=== PATIENT | male | born 1970 | race Caucasian/White ===

== ENCOUNTER 2020-10-26 13:36 | IRF | payer OTHER, SELFPAY ==
--- NOTE | 2020-10-26 13:31 | ADMGEN ---
Patient arrived via personal vehicle, alert and orientated, no issues at this time. This patient, Eagle Turner, was admitted to [facility] Room 220-02. Patient/family oriented to hospital policies and general routines including ID bracelet, bed and alarms, visiting hours, pain management, procedures, bathroom and other care routines, personal items, smoking policy, room service/diet, and visiting hours. Information on how to activate the Rapid Response Team has been discussed. Patient/Family are encouraged to report perceived risks to care and to ask questions if they do not understand what they are told or what they should do.
[2020-10-26 13:37] VITALS: BP 129/59; PULSE 77; RESP 18; TEMP 36.2; O2SAT 100
[2020-10-26 14:12] VITALS: BMI 44.0
[2020-10-26 14:13] VITALS: BP 129/59; PULSE 77; RESP 18; TEMP 36.2; O2SAT 100
[2020-10-26 16:50] VITALS: BMI 44.0
[2020-10-26] MEDS: HYDROcodone/acetaminophen (*CRX) 5-325 MG TABLET 2 TAB PO (17:28)
[2020-10-26 17:31] VITALS: PULSE 77
[2020-10-26] MEDS: APIXABAN 5 MG TABLET PO (17:31)
[2020-10-26] MEDS: AMIODARONE HCL 200 MG TABLET 400 MG PO (17:31)
[2020-10-26] MEDS: GABAPENTIN 300 MG CAPSULE PO (17:32)
[2020-10-26 20:33] VITALS: PULSE 82
[2020-10-26] MEDS: MELATONIN 3 MG TABLET PO (20:33)
[2020-10-26] MEDS: METOPROLOL SUCCINATE EXT REL 25 MG TABCR 75 MG PO (20:33)
[2020-10-26] MEDS: FAMOTIDINE 20 MG TABLET PO (20:33)
[2020-10-26 21:47] VITALS: BP 102/56; PULSE 73; RESP 16; TEMP 36.3; O2SAT 98
[2020-10-27] VITALS (8 sets, daily range): BP systolic 92–105; BP diastolic 54–67; PULSE 65–80; RESP 16–20; TEMP 36.1–36.4; O2SAT 98–99; BMI 44.0
[2020-10-27] MEDS: HYDROcodone/acetaminophen (*CRX) 5-325 MG TABLET 1 TAB PO (02:43)
[2020-10-27 05:21] LABS: Basophils Absolute Auto 0.1 K/mm3 (0.0-0.1); Basophils Percent Auto 0.4 % (0.2-1.2); Eosinophils Absolute Auto 0.2 K/mm3 (0-0.3); Hematocrit 36.1 % (42.0-52.0); Hemoglobin 11.9 g/dL (14.0-18.0); Immature Granulocyte Absolute 0.16 K/mm3 (0.00-0.031); Immature Granulocyte Percent A 0.9 % (0-0.5); Lymphocytes Absolute Auto 2.59 K/mm3 (0.9-3.2); Lymphocytes Percent Auto 14.4 % (18.3-44.2); Mean Corpuscular Hemoglobin 29.5 pg (26-34); Mean Corpuscular Volume 89.6 fl (80-100); Mean Platelet Volume 10.6 fl (7.4-10.4); Monocytes Absolute Auto 1.1 K/mm3 (0.1-0.6); Monocytes Percent Auto 5.9 % (2.6-8.5); Neutrophils Absolute Auto 13.9 K/mm3 (1.3-6.7); Neutrophils Percent Auto 77.4 % (45.5-73.1); Platelet Count Result 407 k/mm3 (150-375); Red Blood Count 4.03 M/mm3 (4.6-6.20); Red Cell Distribution Width 14.2 % (11.5-14.5)
[2020-10-27 05:42] LABS: Alanine Aminotransferase 32 U/L (4-50); Albumin Level 4.1 g/dL (3.5-5.1); Alkaline Phosphatase 105 U/L (38-126); Anion Gap 7 mmol/L (8-16); Aspartate Amino Transferase 40 U/L (17-59); Bilirubin,Total 0.5 mg/dL (0.2-1.3); Blood Urea Nitrogen 18 mg/dL (9-20); Calcium 9.6 mg/dL (8.4-10.2); Carbon Dioxide 28 mmol/L (22-30); Chloride 101 mmol/L (98-107); Estimated CRCL calculation 141 ml/min; Estimated Glomerular Filt Rate > 60; Glucose 120 mg/dL (75-110); Potassium 4.4 mmol/L (3.4-5.0); Sodium 136 mmol/L (137-145)
[2020-10-27] MEDS: GABAPENTIN 300 MG CAPSULE PO ×3 (08:50→18:13)
[2020-10-27] MEDS: METOPROLOL SUCCINATE EXT REL 25 MG TABCR 75 MG PO ×2 (08:51→20:21)
[2020-10-27] MEDS: APIXABAN 5 MG TABLET PO ×2 (08:51→18:13)
[2020-10-27] MEDS: POTASSIUM CHLORIDE 10 MEQ TABLET.ER PO (08:51)
[2020-10-27] MEDS: ISOSORBIDE MONONITRATE 30 MG TAB.ER.24H PO (08:51)
[2020-10-27] MEDS: ATORVASTATIN 40 MG TABLET PO (08:52)
[2020-10-27] MEDS: AMIODARONE HCL 200 MG TABLET PO ×2 (08:52→18:13)
[2020-10-27] MEDS: lisinopriL 10 MG TABLET PO (08:52)
[2020-10-27] MEDS: FAMOTIDINE 20 MG TABLET PO ×2 (08:52→20:21)
[2020-10-27] MEDS: FUROSEMIDE 20 MG TABLET PO (08:52)
[2020-10-27] MEDS: SERTRALINE HCL 50 MG TABLET PO (08:52)
[2020-10-27] MEDS: ASPIRIN 81 MG CHEWABLE TABLET PO (08:53)
[2020-10-27] MEDS: HYDROcodone/acetaminophen (*CRX) 5-325 MG TABLET 2 TAB PO ×3 (08:57→20:22)
--- NOTE | 2020-10-27 11:35 | WPDREHABHP ---
H&P: HPI History of Present Illness Date/Time: 10/27/20 11:35 Chief Complaint: Cardiac rehab, stroke rehab Narrative: HISTORY OF PRESENT ILLNESS: The patient's primary rehab impairment category is cardiac The etiologic diagnosis is severe LAD diagonal coronary artery disease in the setting of failed stents I saw this patient [id number] on 10/27/2020 The patient is a 50-year-old male with past medical history of hypertension, ischemic cardiomyopathy, CHF, coronary artery disease, status stent placement in December 2019 who presented to [facility] on 10/15/20 for an elective CABG. The patient has failed stents and all conservative measures have been exhausted. Patient had recently presented to the hospital on 10/04/2020 with report of ongoing symptoms of fatigue and exertional shortness of breath. He had mildly elevated troponin enzymes. He underwent an echocardiogram which showed an injection fraction of 40-45% and coronary angiography which showed intrastent stenosis involving the LAD and third diagonal branch. There is also significant lesions in the 1st diagonal branch. There is anterior hypokineses by ventriculography. Hospital course: Afib/flutter. Patient will have a maintenance dose of 200mg BID. On Eliquis. Dr. Almanzar was consulted for possible ablation. Leukocytosis: [place] does not recommend antibiotics at this time. Sternal incision had mild redness at the inferior aspects which continued to lessen. Drain sites dry. blood,urine. wound cx negative. TIA?CVA? Patient demonstrated word finding deficits. ST ordered. CT scan negative unable to perform MRI due to recent CABG. Urethritis: irritation and dysuria resolved RLE DVT: per Doppler. Eliquis 5mg BID for 3 months COVID: The patient has not traveled outside the [place] or had contact with someone who is ill that has traveled outside the [place] in the past 21 days. The patient has not traveled to an area of the [place] that is experiencing known transmission of COVID and has not had close personal contact with anyone that has. The patient has not had a fever or lower respiratory sx. Patient has tested negative for COVID 10/25/20 Therapy was initiated at the acute care facility and the patient transferred to us from [facility] on 10/26/20] FALLS OR SURGERIES: The patient has had major surgeries in the 100 days prior to admission. He has had [no] falls in the past year. He had [no] falls with injury in the past year. PRIOR LEVEL OF FUNCTION: Eating was INDEPENDENT Oral Care was [INDEPENDENT] Toileting Hygiene was [INDEPENDENT] Shower/Bathing was [INDEPENDENT] Upper Body Dressing was [INDEPENDENT] Lower Body Dressing was [INDEPENDENT] Donning/Flat Lick Footwear was [INDEPENDENT] Rolling Left and Right was [INDEPENDENT] Sit to Lying was [INDEPENDENT] Lying to Sitting was [INDEPENDENT] Sit to Stand was [INDEPENDENT] Bed to Chair Transfers was [INDEPENDENT] Toilet Transfers was [INDEPENDENT] Walking was [INDEPENDENT] [>500 feet] with [NO DEVICE] Wheelchair Mobility was [NOT APPLICABLE PRIOR TO ADMISSION] Stairs were [INDEPENDENT] CURRENT LEVEL OF FUNCTION: Eating was [SET UP ONLY] Oral Care was [SET UP ONLY] Toileting Hygiene was partial mod assist[] Shower/Bathing was partial mod assist[] Upper Body Dressing partial mod assist.[] Lower Body Dressing was [partial/mod assist] Donning/Flat Lick Footwear was partial/mod assit[] Rolling Left and Right was [partial/mod assist] Sit to Lying was partial/mod assist[] Lying to Sitting was partial.mod assist[] Sit to Stand was partial mod assist[] Bed to Chair Transfers were partial mod assist[] Toilet Transfers were partial mod assist[] Walking was 50 ft with a ww and partial/mod assist[] Wheelchair Mobility was not tested[] Stairs were not tested[] GOALS: Our therapists will evaluate the patient and establish the goals. However, upon pre-admission screening, the expected goals were to be [INDEPENDENT] with self-c
--- NOTE | 2020-10-27 13:50 | RPD ---
INDIVIDUALIZED PLAN OF CARE FOR Eagle Turner Brief Synthesis of Pre-Admission Screen, Post-Admission Evaluation and Therapy Evaluations: The patient presents to rehab with a severe LAD diagonal coronary artery disease. Comorbidities include acute exacerbation of CHF, dyspnea, myocardial ischemia, severe LAD diagonal coronary artery disease, left ventricular dysfunction, atrial fibrillation, CAD, dyslipidemia, hypertension, ischemic cardiomyopathy, anxiety, depression, arthritis, morbid obesity, peripheral arterial disease, peripheral vascular disease, dysuria, and R LE DVT. Post-op complications have included aphasia, ABLA, leukocytosis, urinary issues, right LE DVT, and acute post-operative pain. The complexity of the patient's medical management, nursing, and therapy needs require an inpatient rehab hospital stay with a physician led interdisciplinary team approach. The patient?s needs will be best met in an intensive program vs. at a lower level of care. The patient requires physician services for medical oversight, management of postop complications in setting of present comorbidities, and pain management. He will be followed at least three times a week by the rehabilitation physician. Labs will be drawn to monitor blood counts and electrolytes periodically. The patient requires nursing services for DVT prophylactics, infection protection, medication management and education, pressure relief, and wound care. Deficits include:ADLs, Balance, Endurance, Family Training/Education, Mobility, Pain Management, ROM, Safety, Strength, and Transfers. It Application Administrator/Case Management for: Discharge Planning and Patient/Family Counseling Physical Therapy: 5 days per week for 90 minutes. Treatments may include: Therapeutic Exercise, Gait Training, Neuromuscular Re-education, Transfer Training, Community Reintegration, Bed Mobility, Patient/Family Education, Wheelchair Mobility Group Therapy/Concurrent Therapy Rationales: -Improve attention span during functional activities in a distracted environment. -Enhance problem solving and/or adequate judgment skills during functional activities in a distracted environment. -Promote increased safety awareness in a distracted environment to reduce fall risk with functional tasks, transfers, and ambulation to allow a more safe, self-sufficient return to the home environment. -Improve dynamic balance skills to promote safety and independence with functional activities in a distracted environment for maximum gain. Occupational Therapy: 5 days per week for 90 minutes. Treatments may include: Therapeutic Exercise, Therapeutic Activity, Cognitive Training, Self-Care Transfer Training, Community Reintegration, Home Management, Patient/Family Education, Wheelchair Mobility Training, Energy Conservation Training Group Therapy/Concurrent Therapy Rationales: -Allow therapist to observe and teach generalization and carry-over of skills learned in individual therapy. -Enhance problem solving and sequencing skills during therapeutic activities in a distracted environment. -Promote increased safety awareness in a realistic setting to reduce fall risk with functional tasks due to visual and verbal distractions. -Increase functional level with ADLs, ADL transfers and use of adaptive equipment through therapeutic activities with others while promoting safety to allow a more safe, self-sufficient return home. Medical Prognosis: Good Anticipated Length of Stay: 12 days Rehab Goals: Eating Goal: 06-Independent Oral Hygiene Goal: 06-Independent Toileting Hygiene Goal: 06-Independent Shower/Bathe Self Goal: 06-Independent Upper Body Dressing Goal: 06-Independent Lower Body Dressing Goal: 06-Independent Putting On/Taking Off Footwear Goal: 06-Independent Rolling Left and Right Goal: 06-Independent Sit to Lying Goal: 06-Independent Lying to Sitting on Side of Bed Goal: 06-Independent Sit to Stand Goal: 06-Independent Chair/Nzo-lv-Wylwh Transfer G
--- NOTE | 2020-10-27 14:05 | PCNSR ---
On 10/27/20, the student, Salma Powell, provided care and completed [facility] documentation on this patient. I have reviewed the student's documentation and agree with the findings.
[2020-10-27] MEDS: MELATONIN 3 MG TABLET PO (20:21)
[2020-10-28] VITALS (11 sets, daily range): BP systolic 111–120; BP diastolic 60–66; PULSE 66–84; RESP 16–20; TEMP 36–36.3; O2SAT 95–99
[2020-10-28] MEDS: HYDROcodone/acetaminophen (*CRX) 5-325 MG TABLET 1 TAB PO ×3 (05:05→12:24)
[2020-10-28] MEDS: FAMOTIDINE 20 MG TABLET PO ×2 (08:38→21:36)
[2020-10-28] MEDS: SERTRALINE HCL 50 MG TABLET PO (08:38)
[2020-10-28] MEDS: ATORVASTATIN 40 MG TABLET PO (08:39)
[2020-10-28] MEDS: POTASSIUM CHLORIDE 10 MEQ TABLET.ER PO (08:39)
[2020-10-28] MEDS: METOPROLOL SUCCINATE EXT REL 25 MG TABCR 75 MG PO ×2 (08:39→21:35)
[2020-10-28] MEDS: FUROSEMIDE 20 MG TABLET PO (08:41)
[2020-10-28] MEDS: APIXABAN 5 MG TABLET PO ×2 (08:41→17:59)
[2020-10-28] MEDS: GABAPENTIN 300 MG CAPSULE PO ×3 (08:41→17:59)
[2020-10-28] MEDS: ISOSORBIDE MONONITRATE 30 MG TAB.ER.24H PO (08:41)
[2020-10-28] MEDS: ASPIRIN 81 MG CHEWABLE TABLET PO (08:41)
[2020-10-28] MEDS: AMIODARONE HCL 200 MG TABLET PO ×2 (08:42→17:59)
[2020-10-28] MEDS: lisinopriL 10 MG TABLET PO (08:42)
--- NOTE | 2020-10-28 08:51 | PCPTNOTE ---
Eagle Turner was evaluated for a wheeled walker on 10/28/2020 by this physical therapist. The wheeled walker will resolve patient's mobility limitations and will be used for ADL's within the home. The patient can safely use the wheeled walker. ?The wheeled walker will resolve the patient?s mobility deficits, including hypotension, pain, and poor endurance.
[2020-10-28 15:37] LABS: Basophils Absolute Auto 0.1 K/mm3 (0.0-0.1); Basophils Percent Auto 0.3 % (0.2-1.2); Eosinophils Absolute Auto 0.2 K/mm3 (0-0.3); Eosinophils Percent Auto 0.9 % (0-4.4); Hematocrit 33.3 % (42.0-52.0); Hemoglobin 10.8 g/dL (14.0-18.0); Immature Granulocyte Absolute 0.17 K/mm3 (0.00-0.031); Immature Granulocyte Percent A 0.9 % (0-0.5); Lymphocytes Absolute Auto 3.06 K/mm3 (0.9-3.2); Lymphocytes Percent Auto 16.4 % (18.3-44.2); Mean Corpuscular HGB Conc 32.4 g/dl (32-36); Mean Corpuscular Hemoglobin 29.4 pg (26-34); Mean Corpuscular Volume 90.7 fl (80-100); Mean Platelet Volume 10.8 fl (7.4-10.4); Monocytes Absolute Auto 1.2 K/mm3 (0.1-0.6); Monocytes Percent Auto 6.3 % (2.6-8.5); Neutrophils Percent Auto 75.2 % (45.5-73.1); Platelet Count Result 464 k/mm3 (150-375); Red Blood Count 3.67 M/mm3 (4.6-6.20); Red Cell Distribution Width 14.5 % (11.5-14.5); White Blood Count 18.6 K/mm3 (4.5-10.0)
--- NOTE | 2020-10-28 17:07 | WPDNEURORHBP ---
Subjective Date/time seen: The patient's primary rehab impairment category is cardiac The etiologic diagnosis is severe LAD diagonal coronary artery disease in the setting of failed stents I saw this patient [id number] on 10/27/2020 The patient is a 50-year-old male with past medical history of hypertension, ischemic cardiomyopathy, CHF, coronary artery disease, status stent placement in December [address] [facility] on 10/15/20 for an elective CABG. The patient has failed stents and all conservative measures have been exhausted. Patient had recently presented to the hospital on 10/04/2020 with report of ongoing symptoms of fatigue and exertional shortness of breath. He had mildly elevated troponin enzymes. He underwent an echocardiogram which showed an injection fraction of 40-45% and coronary angiography which showed intrastent stenosis involving the LAD and third diagonal branch. There is also significant lesions in the 1st diagonal branch. There is anterior hypokineses by ventriculography. Hospital course: Afib/flutter. Patient will have a maintenance dose of 200mg BID. On Eliquis. Dr. Almanzar was consulted for possible ablation. Leukocytosis: [place] does not recommend antibiotics at this time. Sternal incision had mild redness at the inferior aspects which continued to lessen. Drain sites dry. blood,urine. wound cx negative. TIA?CVA? Patient demonstrated word finding deficits. ST ordered. CT scan negative unable to perform MRI due to recent CABG. Urethritis: irritation and dysuria resolved RLE D101/31 Patient with complaints of sternal pain. Will lady norco for 10mg TID. Consider switching to tramadol Review of Systems Review of Systems: All systems reviewed & are unremarkable except as noted in HPI and below Functional Status Ambulation Ability Ability to Ambulate 10 Feet: Independent Ability to Ambulate 50 Feet With 2 Turns: Independent Ability to Ambulate 150 Feet: Independent Ambulation Assistive Devices: None Transfers Ability Ability to Transfer In/Out of Chair: Independent Exam Const: General: no acute distress Eyes: General: appearance normal, both eyes and all related structures Neck: Neck: supple Chest: Other: sternal incision dry no drainage, redness slightly worse Resp: Auscultation: clear to auscultation bilaterally Cardio: Rate: regular rate Rhythm: regular rhythm Skin: Other: drains sites dry, graft sites clean with minimal redness. Neuro: Cognition (Neuro): normal cognition Speech: normal speech Other: except for number forward and backwards. 50 % accuracy Psych: Affect: normal affect Objective Data Vital Signs Vital Signs: Vital Signs - 24 hr 10/27/20 18:13 10/27/20 20:21 10/27/20 22:00 Temperature 36.1 C L Pulse Rate 76 80 65 Respiratory Rate 20 Blood Pressure 92/56 L Pulse Oximetry 98 10/28/20 06:00 10/28/20 08:39 10/28/20 08:42 Temperature 36.0 C L Pulse Rate 66 76 76 Respiratory Rate 16 Blood Pressure 111/65 Pulse Oximetry 98 10/28/20 09:31 10/28/20 11:00 10/28/20 13:34 Temperature Pulse Rate 81 84 71 Respiratory Rate Blood Pressure 114/66 Pulse Oximetry 99 95 97 10/28/20 14:00 Temperature 36.0 C L Pulse Rate 76 Respiratory Rate 20 Blood Pressure 120/60 Pulse Oximetry 98 Intake/Output Intake/Output: Intake & Output 10/25/20 10/26/20 10/27/20 10/28/20 23:59 23:59 23:59 23:59 Intake Total 240 840 600 Balance 240 840 600 Meds/Results Medications: Active Medications Generic Name Dose Route Start Last Admin Trade Name Freq PRN Reason Stop Dose Admin Acetaminophen 650 mg 10/26/20 16:40 Acetaminophen 325 Mg Tablet PO Q4H PRN Pain (Scale Score 1-3) Hydrocodone Bitart/Acetaminophen 1 tab 10/26/20 16:40 10/28/20 12:24 Hydrocodone/Acetaminophen (*Crx) 5-325 Mg Tablet PO 11/02/20 23:59 1 tab Q6H PRN Administration Pain (Scale Score 4-6) Hydrocodone Bitart
[2020-10-28] MEDS: HYDROcodone/acetaminophen (*CRX) 10-325 MG TABLET 1 TAB PO (17:57)
[2020-10-28] MEDS: CEPHALEXIN 500 MG CAPSULE PO (17:59)
[2020-10-28] MEDS: MUPIROCIN 2% OINT 22 GM TUBE 1 APPLIC TOPICAL (17:59)
[2020-10-28] MEDS: HYDROcodone/acetaminophen (*CRX) 5-325 MG TABLET 2 TAB PO (21:33)
[2020-10-28] MEDS: MELATONIN 3 MG TABLET PO (21:36)
[2020-10-29] VITALS (10 sets, daily range): BP systolic 114–129; BP diastolic 53–73; PULSE 62–90; RESP 16–18; TEMP 35.8–36.1; O2SAT 96–100
[2020-10-29] MEDS: CEPHALEXIN 500 MG CAPSULE PO ×4 (00:23→16:45)
[2020-10-29 05:37] LABS: Potassium 4.9 mmol/L (3.4-5.0)
[2020-10-29] MEDS: POTASSIUM CHLORIDE 10 MEQ TABLET.ER PO (08:28)
[2020-10-29] MEDS: HYDROcodone/acetaminophen (*CRX) 10-325 MG TABLET 1 TAB PO ×3 (08:28→16:45)
[2020-10-29] MEDS: ATORVASTATIN 40 MG TABLET PO (08:28)
[2020-10-29] MEDS: FUROSEMIDE 20 MG TABLET PO (08:29)
[2020-10-29] MEDS: APIXABAN 5 MG TABLET PO ×2 (08:29→16:45)
[2020-10-29] MEDS: lisinopriL 10 MG TABLET PO (08:29)
[2020-10-29] MEDS: GABAPENTIN 300 MG CAPSULE PO ×3 (08:29→16:45)
[2020-10-29] MEDS: SERTRALINE HCL 50 MG TABLET PO (08:29)
[2020-10-29] MEDS: ASPIRIN 81 MG CHEWABLE TABLET PO (08:29)
[2020-10-29] MEDS: AMIODARONE HCL 200 MG TABLET PO ×2 (08:29→16:44)
[2020-10-29] MEDS: METOPROLOL SUCCINATE EXT REL 25 MG TABCR 75 MG PO ×2 (08:30→20:43)
[2020-10-29] MEDS: MUPIROCIN 2% OINT 22 GM TUBE 1 APPLIC TOPICAL ×2 (08:30→16:46)
[2020-10-29] MEDS: FAMOTIDINE 20 MG TABLET PO ×2 (08:30→20:45)
[2020-10-29] MEDS: ISOSORBIDE MONONITRATE 30 MG TAB.ER.24H PO (08:30)
--- OUTSIDE RECORDS SUMMARY | 2020-10-29 10:37 | XMS_ITS ---
:1970 Author Organization [facility] Address Pending sale to [facility] [place], [place] [id number] [place] [id number] Care Team Providers Name Role Phone MD [facility] Fin[facility] Saw Operator New Referring Unavailable Junior Guerra MD Primary Care Provider Reason for Referral (Routine) Status Reason Specialty Diagnoses / Referred By Referred To Procedures Contact Contact New Request Procedures Maranda Icu LEATHER COVERER eval and treat [address] [place], [place] [address] Electronically signed by Maximo Jiang Daily atImaging (Urgent) Status Reason Specialty Diagnoses / Referred By Referred To Procedures Contact Contact Pending Review RADIOLOGY Procedures Daily, Maximo Jiang MD [facility] [address] [place] [address] [facility]
--- NOTE | 2020-10-29 15:21 | WPDNEURORHBP ---
Subjective Date/time seen: 10/29/20 15:21 The etiologic diagnosis is severe LAD diagonal coronary artery disease in the setting of failed stents The patient is a 50-year-old male with past medical history of hypertension, ischemic cardiomyopathy, CHF, coronary artery disease, status post stent placement in December [address] [facility] on 10/15/20 for an elective CABG. The patient has failed stents and all conservative measures have been exhausted. Patient had recently presented to the hospital on 10/04/2020 with report of ongoing symptoms of fatigue and exertional shortness of breath. He had mildly elevated troponin enzymes. He underwent an echocardiogram which showed an injection fraction of 40-45% and coronary angiography which showed intrastent stenosis involving the LAD and third diagonal branch. There is also significant lesions in the 1st diagonal branch. There is anterior hypokineses by ventriculography. Hospital course at E: Afib/flutter. Patient will have a maintenance dose of 200mg BID. On Eliquis. Dr. Almanzar was consulted for possible ablation. Leukocytosis: [place] does not recommend antibiotics at this time. Sternal incision had mild redness at the inferior aspects which continued to lessen. Drain sites dry. blood,urine. wound cx negative. TIA?CVA? Patient demonstrated word finding deficits. ST ordered. CT scan negative unable to perform MRI due to recent CABG. Urethritis: irritation and dysuria resolved RLE DVT Patient is better today. Patient is more comfortable with the addition of the [place]. Patient feels prepared for discharge on Tuesday. Review of Systems Review of Systems: All systems reviewed & are unremarkable except as noted in HPI and below Functional Status Ambulation Ability Ability to Ambulate 10 Feet: Independent Ability to Ambulate 50 Feet With 2 Turns: Independent Ability to Ambulate 150 Feet: Independent Ambulation Assistive Devices: None Transfers Ability Ability to Transfer In/Out of Chair: Independent Exam Const: General: no acute distress Eyes: General: appearance normal, both eyes and all related structures Neck: Neck: supple Chest: Other: sternal incision dry no drainage, redness unchanged Resp: Auscultation: clear to auscultation bilaterally Cardio: Rate: regular rate Rhythm: regular rhythm Skin: Other: drains sites dry, graft sites clean with minimal redness. Neuro: Cognition (Neuro): normal cognition Speech: normal speech Other: baseline Psych: Affect: normal affect Objective Data Vital Signs Vital Signs: Vital Signs - 24 hr 10/28/20 17:59 10/28/20 20:30 10/28/20 21:35 Temperature Pulse Rate 76 68 68 Respiratory Rate 18 Blood Pressure Pulse Oximetry 98 10/28/20 22:00 10/29/20 06:00 10/29/20 08:00 Temperature 36.3 C L 36.1 C L Pulse Rate 68 66 80 Respiratory Rate 18 18 18 Blood Pressure 117/62 114/60 Pulse Oximetry 98 97 96 10/29/20 08:29 10/29/20 08:30 10/29/20 11:00 Temperature Pulse Rate 66 66 80 Respiratory Rate Blood Pressure Pulse Oximetry 96 10/29/20 14:00 Temperature 36.1 C L Pulse Rate 90 Respiratory Rate 18 Blood Pressure 129/73 Pulse Oximetry 100 Intake/Output Intake/Output: Intake & Output 10/26/20 10/27/20 10/28/20 10/29/20 23:59 23:59 23:59 23:59 Intake Total 240 840 840 600 Balance 240 840 840 600 Meds/Results Medications: Active Medications Generic Name Dose Route Start Last Admin Trade Name Freq PRN Reason Stop Dose Admin Acetaminophen 650 mg 10/26/20 16:40 Acetaminophen 325 Mg Tablet PO Q4H PRN Pain (Scale Score 1-3) Hydrocodone Bitart/Acetaminophen 1 tab 10/26/20 16:40 10/28/20 12:24 Hydrocodone/Acetaminophen (*Crx) 5-325 Mg Tablet PO 11/02/20 23:59 1 tab Q6H PRN Administration Pain (Scale Score 4-6) Hydrocodone Bitart/Acetaminophen 2 tab 10/26/20 16:40 10/28/20 21:33 Hydrocodone/Acetaminophen (*Crx) 5-325 Mg Tabl
--- NOTE | 2020-10-29 16:26 | PC.NURSE ---
Addendum entered by Kate Nash RN 10/29/20 16:29: correction: being discharged on Tuesday. 11/01/20. Original Note: Message left with Dr. Mckoy durable medical equipment technician that patient is being discharged on Tuesday11/03/20.
[2020-10-29] MEDS: HYDROcodone/acetaminophen (*CRX) 5-325 MG TABLET 2 TAB PO (20:42)
[2020-10-29] MEDS: MELATONIN 3 MG TABLET PO (20:45)
[2020-10-30] VITALS (7 sets, daily range): BP systolic 123–136; BP diastolic 58–70; PULSE 59–76; RESP 16; TEMP 35.7–36.1; O2SAT 97–100
[2020-10-30] MEDS: CEPHALEXIN 500 MG CAPSULE PO ×5 (00:10→23:56)
[2020-10-30] MEDS: HYDROcodone/acetaminophen (*CRX) 10-325 MG TABLET 1 TAB PO ×3 (10:00→17:10)
[2020-10-30] MEDS: METOPROLOL SUCCINATE EXT REL 25 MG TABCR 75 MG PO ×2 (10:00→20:39)
[2020-10-30] MEDS: MUPIROCIN 2% OINT 22 GM TUBE 1 APPLIC TOPICAL ×2 (10:00→17:10)
[2020-10-30] MEDS: ISOSORBIDE MONONITRATE 30 MG TAB.ER.24H PO (10:00)
[2020-10-30] MEDS: POTASSIUM CHLORIDE 10 MEQ TABLET.ER PO (10:00)
[2020-10-30] MEDS: AMIODARONE HCL 200 MG TABLET PO ×2 (10:00→17:11)
[2020-10-30] MEDS: ASPIRIN 81 MG CHEWABLE TABLET PO (10:00)
[2020-10-30] MEDS: FUROSEMIDE 20 MG TABLET PO (10:01)
[2020-10-30] MEDS: ATORVASTATIN 40 MG TABLET PO (10:01)
[2020-10-30] MEDS: GABAPENTIN 300 MG CAPSULE PO ×3 (10:01→17:11)
[2020-10-30] MEDS: lisinopriL 10 MG TABLET PO (10:01)
[2020-10-30] MEDS: FAMOTIDINE 20 MG TABLET PO ×2 (10:01→20:40)
[2020-10-30] MEDS: SERTRALINE HCL 50 MG TABLET PO (10:01)
[2020-10-30] MEDS: APIXABAN 5 MG TABLET PO ×2 (10:01→17:11)
--- NOTE | 2020-10-30 13:08 | WPDNEURORHBP ---
Subjective Date/time seen: 10/30/20 13:08 Interval history: The etiologic diagnosis is severe LAD diagonal coronary artery disease in the setting of failed stents The patient is a 50-year-old male with past medical history of hypertension, ischemic cardiomyopathy, CHF, coronary artery disease, status post stent placement in December 2019 who presented to [facility] on 10/15/20 for an elective CABG. The patient has failed stents and all conservative measures have been exhausted. Patient had recently presented to the hospital on 10/04/2020 with report of ongoing symptoms of fatigue and exertional shortness of breath. He had mildly elevated troponin enzymes. He underwent an echocardiogram which showed an injection fraction of 40-45% and coronary angiography which showed intrastent stenosis involving the LAD and third diagonal branch. There is also significant lesions in the 1st diagonal branch. There is anterior hypokineses by ventriculography. Hospital course at E: Afib/flutter. Patient will have a maintenance dose of 200mg BID. On Eliquis. Dr. Almanzar was consulted for possible ablation. Leukocytosis: [place] [facility] does not recommend antibiotics at this time. Sternal incision had mild redness at the inferior aspects which continued to lessen. Drain sites dry. blood,urine. wound cx negative. TIA?CVA? Patient demonstrated word finding deficits. ST ordered. CT scan negative unable to perform MRI due to recent CABG. Urethritis: irritation and dysuria resolved RLE DVT Patient admits to soreness to sternum. Pain is under control. Patient feels prepared for discharge on Tuesday. Review of Systems Review of Systems: All systems reviewed & are unremarkable except as noted in HPI and below Functional Status Ambulation Ability Ability to Ambulate 10 Feet: Independent Ability to Ambulate 50 Feet With 2 Turns: Independent Ability to Ambulate 150 Feet: Independent Ambulation Assistive Devices: None Transfers Ability Ability to Transfer In/Out of Chair: Independent Exam Const: General: no acute distress Eyes: General: appearance normal, both eyes and all related structures Neck: Neck: supple Chest: Other: sternal incision dry no drainage, redness unchanged Resp: Auscultation: clear to auscultation bilaterally Cardio: Rate: regular rate Rhythm: regular rhythm Skin: Other: drains sites dry, graft sites clean with minimal redness. Neuro: Cognition (Neuro): normal cognition Speech: normal speech Other: baseline Psych: Affect: normal affect Objective Data Vital Signs Vital Signs: Vital Signs - 24 hr 10/29/20 14:00 10/29/20 16:44 10/29/20 20:40 Temperature 36.1 C L Pulse Rate 90 90 64 Respiratory Rate 18 16 Blood Pressure 129/73 Pulse Oximetry 100 99 10/29/20 20:43 10/29/20 21:35 10/30/20 05:59 Temperature 35.8 C L 35.8 C L Pulse Rate 62 64 65 Respiratory Rate 16 16 Blood Pressure 117/53 L 136/66 Pulse Oximetry 99 97 10/30/20 08:30 10/30/20 10:00 Temperature Pulse Rate 76 76 Respiratory Rate Blood Pressure Pulse Oximetry 100 Intake/Output Intake/Output: Intake & Output 10/27/20 10/28/20 10/29/20 10/30/20 23:59 23:59 23:59 23:59 Intake Total 840 840 840 480 Balance 840 840 840 480 Meds/Results Medications: Active Medications Generic Name Dose Route Start Last Admin Trade Name Freq PRN Reason Stop Dose Admin Acetaminophen 650 mg 10/26/20 16:40 Acetaminophen 325 Mg Tablet PO Q4H PRN Pain (Scale Score 1-3) Hydrocodone Bitart/Acetaminophen 1 tab 10/26/20 16:40 10/28/20 12:24 Hydrocodone/Acetaminophen (*Crx) 5-325 Mg Tablet PO 11/02/20 23:59 1 tab Q6H PRN Administration Pain (Scale Score 4-6) Hydrocodone Bitart/Acetaminophen 2 tab 10/26/20 16:40 10/29/20 20:42 Hydrocodone/Acetaminophen (*Crx) 5-325 Mg Tablet PO 11/02/20 23:59 2 tab Q6H PRN Administration Pain (Scale Score 7-10) Hydrocodone Bitart/Acetaminophen 1 tab 05
[2020-10-30] MEDS: MELATONIN 3 MG TABLET PO (20:39)
[2020-10-30] MEDS: HYDROcodone/acetaminophen (*CRX) 5-325 MG TABLET 1 TAB PO (20:41)
[2020-10-31] VITALS (8 sets, daily range): BP systolic 114–152; BP diastolic 63–71; PULSE 58–75; RESP 16–18; TEMP 36.2–36.5; O2SAT 99–100
[2020-10-31 05:25] LABS: Potassium 4.6 mmol/L (3.4-5.0)
[2020-10-31] MEDS: HYDROcodone/acetaminophen (*CRX) 5-325 MG TABLET 2 TAB PO ×2 (05:41→12:35)
[2020-10-31] MEDS: CEPHALEXIN 500 MG CAPSULE PO ×4 (05:43→23:19)
[2020-10-31] MEDS: ATORVASTATIN 40 MG TABLET PO (09:34)
[2020-10-31] MEDS: SERTRALINE HCL 50 MG TABLET PO (09:34)
[2020-10-31] MEDS: FUROSEMIDE 20 MG TABLET PO (09:34)
[2020-10-31] MEDS: FAMOTIDINE 20 MG TABLET PO ×2 (09:34→21:39)
[2020-10-31] MEDS: APIXABAN 5 MG TABLET PO ×2 (09:34→17:40)
[2020-10-31] MEDS: lisinopriL 10 MG TABLET PO (09:34)
[2020-10-31] MEDS: METOPROLOL SUCCINATE EXT REL 25 MG TABCR 75 MG PO ×2 (09:34→21:40)
[2020-10-31] MEDS: ASPIRIN 81 MG CHEWABLE TABLET PO (09:34)
[2020-10-31] MEDS: GABAPENTIN 300 MG CAPSULE PO ×3 (09:34→17:40)
[2020-10-31] MEDS: MUPIROCIN 2% OINT 22 GM TUBE 1 APPLIC TOPICAL ×2 (09:35→17:40)
[2020-10-31] MEDS: AMIODARONE HCL 200 MG TABLET PO ×2 (09:35→17:40)
[2020-10-31] MEDS: ISOSORBIDE MONONITRATE 30 MG TAB.ER.24H PO (09:35)
[2020-10-31] MEDS: POTASSIUM CHLORIDE 10 MEQ TABLET.ER PO (09:35)
--- NOTE | 2020-10-31 13:22 | WPDNEURORHBP ---
Subjective Date/time seen: 10/31/20 13:22 Interval history: The etiologic diagnosis is severe LAD diagonal coronary artery disease in the setting of failed stents The patient is a 50-year-old male with past medical history of hypertension, ischemic cardiomyopathy, CHF, coronary artery disease, status post stent placement in December 2019 who presented to [facility] on 10/15/20 for an elective CABG. The patient has failed stents and all conservative measures have been exhausted. Patient had recently presented to the hospital on 10/04/2020 with report of ongoing symptoms of fatigue and exertional shortness of breath. He had mildly elevated troponin enzymes. He underwent an echocardiogram which showed an injection fraction of 40-45% and coronary angiography which showed intrastent stenosis involving the LAD and third diagonal branch. There is also significant lesions in the 1st diagonal branch. There is anterior hypokineses by ventriculography. Hospital course at E: Afib/flutter. Patient will have a maintenance dose of 200mg BID. On Eliquis. Dr. Almanzar was consulted for possible ablation. Leukocytosis: Burke does not recommend antibiotics at this time. Sternal incision had mild redness at the inferior aspects which continued to lessen. Drain sites dry. blood,urine. wound cx negative. TIA?CVA? Patient demonstrated word finding deficits. ST ordered. CT scan negative unable to perform MRI due to recent CABG. Urethritis: irritation and dysuria resolved RLE DVT Patient admits to soreness to sternum. He will return to his pain doctor after discharge to discuss ongoing pain mgmt. Paitent does not appear to be in much pain. Patient feels prepared for discharge on Tuesday. Reviewed meds with patient. He is unclear of dosages Review of Systems Review of Systems: All systems reviewed & are unremarkable except as noted in HPI and below Functional Status Ambulation Ability Ability to Ambulate 10 Feet: Independent Ability to Ambulate 50 Feet With 2 Turns: Independent Ability to Ambulate 150 Feet: Independent Ambulation Assistive Devices: None Transfers Ability Ability to Transfer In/Out of Chair: Independent Exam Const: General: no acute distress Eyes: General: appearance normal, both eyes and all related structures Neck: Neck: supple Chest: Other: sternal incision dry no drainage, redness is less Resp: Auscultation: clear to auscultation bilaterally Cardio: Rate: regular rate Rhythm: regular rhythm Skin: Other: drains sites dry, graft sites clean with minimal redness. Neuro: Cognition (Neuro): normal cognition Speech: normal speech Other: baseline Psych: Affect: normal affect Objective Data Vital Signs Vital Signs: Vital Signs - 24 hr 10/30/20 14:00 10/30/20 17:11 10/30/20 20:39 Temperature 36.1 C L Pulse Rate 68 68 64 Respiratory Rate 16 Blood Pressure 123/58 L Pulse Oximetry 98 10/30/20 21:37 10/31/20 06:00 10/31/20 08:30 Temperature 35.7 C L 36.5 C Pulse Rate 59 L 60 75 Respiratory Rate 16 16 Blood Pressure 123/70 134/71 Pulse Oximetry 100 100 99 10/31/20 09:34 10/31/20 09:35 Temperature Pulse Rate 66 66 Respiratory Rate Blood Pressure Pulse Oximetry Intake/Output Intake/Output: Intake & Output 10/28/20 10/29/20 10/30/20 10/31/20 23:59 23:59 23:59 23:59 Intake Total 173 090 8699 480 Balance 827 988 4989 480 Meds/Results Medications: Active Medications Generic Name Dose Route Start Last Admin Trade Name Freq PRN Reason Stop Dose Admin Acetaminophen 650 mg 10/26/20 16:40 Acetaminophen 325 Mg Tablet PO Q4H PRN Pain (Scale Score 1-3) Hydrocodone Bitart/Acetaminophen 1 tab 10/26/20 16:40 10/30/20 20:41 Hydrocodone/Acetaminophen (*Crx) 5-325 Mg Tablet PO 11/02/20 23:59 1 tab Q6H PRN Administration Pain (Scale Score 4-6) Hydrocodone Bitart/Acetaminophen 2 tab 10/26/20 16:40 10/31/20 12:35 Hydrocodone/Acetaminophen
--- NOTE | 2020-10-31 13:53 | PCDIET ---
Nutrition Follow-Up Complete: Nutrition Diagnosis: Obesity related to history of excessive intake as evidenced by a BMI of 44. Nutrition Goal: Patient to consume 100% of his heart healthy meals. Goal met. Patient consuming 100% of meals on heart healthy diet. Declines need for further education; reports he spoke with RD at outside hospital. Last recorded weight is 131.3 kg. Recommend obtaining new weight. Bowel Motility: Last documented BM on 10/28/20. Labs Reviewed: Hgb (10.8), Hct (33.3), K (4.6) Meds Noted: [place], Amiodarone, Lipitor, Keflex, Pepcid, Lasix, Imdur, Lisinopril, Toprol XL, KCl Additional Notes: Sternal wound well approximated and open to air. No pressure sores documented. Will continue to monitor with same goal. Nutrition Monitoring and Evaluation: Will follow up in 7 days.
[2020-10-31] MEDS: HYDROcodone/acetaminophen (*CRX) 5-325 MG TABLET 1 TAB PO (19:45)
[2020-10-31] MEDS: MELATONIN 3 MG TABLET PO (21:41)
[2020-11-01] MEDS: CEPHALEXIN 500 MG CAPSULE PO (05:50)
[2020-11-01 06:00] VITALS: BP 131/74; PULSE 66; RESP 16; TEMP 35.8; O2SAT 96
[2020-11-01 08:24] VITALS: PULSE 70
[2020-11-01] MEDS: ATORVASTATIN 40 MG TABLET PO (08:24)
[2020-11-01] MEDS: ASPIRIN 81 MG CHEWABLE TABLET PO (08:24)
[2020-11-01] MEDS: AMIODARONE HCL 200 MG TABLET PO (08:24)
[2020-11-01] MEDS: GABAPENTIN 300 MG CAPSULE PO (08:24)
[2020-11-01] MEDS: POTASSIUM CHLORIDE 10 MEQ TABLET.ER PO (08:24)
[2020-11-01 08:25] VITALS: PULSE 70
[2020-11-01] MEDS: ISOSORBIDE MONONITRATE 30 MG TAB.ER.24H PO (08:25)
[2020-11-01] MEDS: METOPROLOL SUCCINATE EXT REL 25 MG TABCR 75 MG PO (08:25)
[2020-11-01] MEDS: FAMOTIDINE 20 MG TABLET PO (08:25)
[2020-11-01] MEDS: lisinopriL 10 MG TABLET PO (08:25)
[2020-11-01] MEDS: APIXABAN 5 MG TABLET PO (08:25)
[2020-11-01] MEDS: HYDROcodone/acetaminophen (*CRX) 5-325 MG TABLET 2 TAB PO (08:25)
[2020-11-01] MEDS: MUPIROCIN 2% OINT 22 GM TUBE 1 APPLIC TOPICAL (08:25)
[2020-11-01] MEDS: SERTRALINE HCL 50 MG TABLET PO (08:25)
[2020-11-01] MEDS: FUROSEMIDE 20 MG TABLET PO (08:25)
--- NOTE | 2020-11-01 09:46 | PM.DS ---
DS: Admitting Diagnosis Admitting Diagnosis Admitting Diagnosis: Cardiac rehab with CABG and prolonged intubation, DVT, Afib/flutter DS: Discharge Diagnosis Discharge Diagnosis (1) A-fib: Code(s): I48.91 - Unspecified atrial fibrillation Status: Acute Assessment and Plan: Amiodarone 200 mg b.i.d. Follow up with [facility] (2) S/P CABG x 3: Code(s): Z95.1 - Presence of aortocoronary bypass graft Status: Acute Assessment and Plan: aspirin 81 mg daily, patient with minimal redness to sternum. Apply antibiotic ointment and started Keflex. Patient will go home on Keflex 500mg q 6 hours for 3 days. (3) Ischemic cardiomyopathy: Code(s): I25.5 - Ischemic cardiomyopathy Status: Acute Assessment and Plan: Imdur 30 mg daily (4) CAD (coronary artery disease): Code(s): I25.10 - Atherosclerotic heart disease of craig coronary artery without angina pectoris Status: Acute Assessment and Plan: Lipitor, Imdur 30 mg daily (5) CHF (congestive heart failure): Code(s): I50.9 - Heart failure, unspecified Status: Acute Assessment and Plan: Lasix 20 mg daily potassium 10 mEq daily (6) HTN (hypertension): Code(s): I10 - Essential (primary) hypertension Status: Acute Assessment and Plan: lisinopril 10 mg daily. Toprol XL 75 mg q 12 hours (7) HLD (hyperlipidemia): Code(s): E78.5 - Hyperlipidemia, unspecified Status: Acute Assessment and Plan: Lipitor (8) Anxiety: Code(s): F41.9 - Anxiety disorder, unspecified Status: Acute Assessment and Plan: Atarax p.r.n. Patient did not take Atarax will on rehab. Patient's overall anxiety was managed without meds. (9) Depression: Code(s): F32.9 - Major depressive disorder, single episode, unspecified Status: Acute Assessment and Plan: Zoloft. Stable (10) External incisional dehiscence: Code(s): T81.31XA - Disruption of external operation (surgical) wound, not elsewhere classified, initial encounter Status: Acute Assessment and Plan: No drainage. Add Keflex and Bactroban. Redness is resolving. Less redness noted on discharge (11) Right leg DVT: Code(s): I82.401 - Acute embolism and thrombosis of unspecified deep veins of right lower extremity Status: Acute Assessment and Plan: eliquis 5mg bid for 3 months. Patient has been instructed that examiner will provide one month supply but PCP will need to refill (12) Chronic pain: Code(s): G89.29 - Other chronic pain Status: Acute Assessment and Plan: Neurontin 300 mg t.i.d. Patient will return to his pain management doctor at discharge. Patient required Belcher for incisional pain but had decrease pain and no Belcher was given at discharge (13) Insomnia: Code(s): G47.00 - Insomnia, unspecified Status: Acute Assessment and Plan: melatonin DS: Summary Hospital Course Hospital Course: Interval history: The etiologic diagnosis is severe LAD diagonal coronary artery disease in the setting of failed stents The patient is a 50-year-old male with past medical history of hypertension, ischemic cardiomyopathy, CHF, coronary artery disease, status post stent placement in December [address] [facility] on 10/15/20 for an elective CABG. The patient has failed stents and all conservative measures have been exhausted. Patient had recently presented to the hospital on 10/04/2020 with report of ongoing symptoms of fatigue and exertional shortness of breath. He had mildly elevated troponin enzymes. He underwent an echocardiogram which showed an injection fraction of 40-45% and coronary angiography which showed intrastent stenosis involving the LAD and third diagonal branch. There is also significant lesions in the 1st diagonal branch. There is anterior hypokineses by ventriculography. [facility]
== END 2020-11-01 10:05 | disposition home or self-care (01) | DRG 949 ==
PROVIDERS: Admitting Provider Physical Medicine & Rehabilitation; Visit Provider Physical Medicine & Rehabilitation
DX: Z48.812 Encounter for surgical aftercare following surgery on the circulatory system (principal); I82.491 Acute embolism and thrombosis of other specified deep vein of right lower extremity; Z68.41 Body mass index [BMI] 40.0-44.9, adult; I25.10 Atherosclerotic heart disease of native coronary artery without angina pectoris; I11.0 Hypertensive heart disease with heart failure; I50.9 Heart failure, unspecified; R06.00 Dyspnea, unspecified; D72.829 Elevated white blood cell count, unspecified; E78.5 Hyperlipidemia, unspecified; E66.01 Morbid (severe) obesity due to excess calories; F41.8 Other specified anxiety disorders; I48.91 Unspecified atrial fibrillation; I25.5 Ischemic cardiomyopathy; I73.9 Peripheral vascular disease, unspecified; R47.02 Dysphasia; Z95.5 Presence of coronary angioplasty implant and graft; Z95.1 Presence of aortocoronary bypass graft
CPT/HCPCS: 36415; 80053; 84132; 85025; 92523; 97110; 97116; 97161; 97166; 97530; 97535; A9270